=== PATIENT | female | born 1945 | race African-American/Black ===

== ENCOUNTER 2017-01-14 10:20 | Outpatient (CLI) ==
--- NOTE | 2017-01-14 14:01 | MRI ---
EXAM: MRI right knee without contrast. HISTORY: Osteoarthritis.. Bilateral knee pain. No right knee surgery reported.. TECHNIQUE: Using a local extremity coil on a high field strength magnet multiplanar multisequence m agnet resonance imaging performed of the right knee without intravenous or intra-articular gadoliniu m contrast. FINDINGS: I do not have prior radiographs of the right knee available for comparison at the time of this dictation. Within the medial compartment there is abnormal size and morphology posterior horn and body medial m eniscus compatible with degenerative tear. There is marked diffuse joint centered chondrosis and ca rtilage ulceration/denudation throughout the weightbearing medial compartment. Joint centered subch ondral remodeling/cyst formation/edema. Subchondral sclerosis. Productive osteophyte formation. A dditional chondrosis with underlying subchondral edema/cyst formation over the posterior nonweight b earing medial femoral condyle. Within the lateral compartment the lateral meniscus is intact without discrete surfacing meniscal te ar. Mild lateral compartment chondrosis. Trace subchondral remodeling/cyst formation weightbearing lateral femoral condyle. Early productive osteophyte formation. Within the patellofemoral compartment the patella seated with intact patellar attachment of the medi al and lateral patellar retinaculum. Mild patellar chondrosis/chondromalacia patella over the media l facet. Trochlear groove cartilage relatively congruent. Productive osteophyte formation. Small right knee effusion. No osteochondral loose bodies. Some question scar/fibrosis along Hoffa's fat pad. No reported prior right knee surgery. Has this patient had prior arthroscopic right knee surgery with this possibly representing arthrofibrosis. Intact anterior and posterior cruciate liga ment fibers of normal orientation. The extensor mechanism is intact.. Distal quadriceps tendinosis .. Patellar tendinosis. Intact medial collateral ligament albeit bowed medially. The lateral santa ateral ligament complex intact as is the posterolateral corner.. IMPRESSION: Degenerative tear posterior horn / body medial meniscus. Changes of tricompartmental osteoarthrosis, by far away medial compartment dominant, where there is marked joint centered chondrosis and cartilage ulceration/denudation. Small right knee effusion. Some questionable scar/fibrosis along Hoffa's fat pad. Has this patient had prior arthroscopic right knee surgery? Intact cruciate and collateral ligaments. Distal quadriceps tendinosis. Patellar tendinosis.
--- NOTE | 2017-01-14 14:09 | MRI ---
EXAM: MRI left knee without contrast. HISTORY: Osteoarthritis. Bilateral knee pain. No reported left knee surgery.. TECHNIQUE: Using a local extremity coil on a high field strength magnet multiplanar multisequence M RI was performed of the left knee without intravenous or intra-articular gadolinium contrast.. FINDINGS: I do not have prior radiographs of the left knee available for comparison at the time of this dictation. Within the medial compartment medial meniscus is intact without discrete surfacing meniscal tear. M ild medial compartment chondrosis with 14 mm area of cartilage denudation/cartilage ulceration over the weightbearing medial tibial plateau. Early productive osteophyte formation. Within the lateral compartment the lateral meniscus is intact without discrete surfacing meniscal te ar. The lateral compartment cartilage congruent without focal underlying subchondral edema. Within the patellofemoral compartment the patella seated. Intact patellar attachment of the medial and lateral patellar retinaculum. Approximate 17 mm area of chondrosis and cartilage ulceration ove r the median ridge to medial facet with underlying subchondral edema. The trochlear groove cartilag e relatively congruent. Productive osteophyte formation. Trace left effusion. No osteochondral loose bodies. Intact anterior and posterior cruciate ligamen t fibers. No translation of the tibia with respect to the femur. The extensor mechanism is intact. Some distal quadriceps as well as patellar tendinosis. The medial collateral ligament as well as lateral collateral ligament complex and posterolateral corner intact.. IMPRESSION: No discrete surfacing meniscal tear. Changes of osteoarthrosis, medial and patellofemoral compartment dominant. Mild medial patellar cho ndrosis with 14 mm area of cartilage ulceration over the weightbearing medial tibial plateau. 17 mm area of chondrosis and cartilage ulceration over the median ridge to medial facet of the patella. Trace left effusion. Intact cruciate and collateral ligaments. Distal quadriceps as well as patellar tendinosis.
== END 2017-01-14 10:21 | disposition home or self-care (01) ==
LOC: RAD 10:20
PROVIDERS: ATTEND Physician Assistant Surgical
DX: M17.0 Bilateral primary osteoarthritis of knee (principal)